=== PATIENT | male | born 1960 | race Caucasian/White ===

== ENCOUNTER → 2018-11-10 08:54 | Outpatient (CLI) | payer BC ==
[2011-01-22 08:19] VITALS: BMI 37.8
--- NOTE | ~2018-11-10 | ST ---
PATIENT:LISSETH GUILLEN MEDICAL RECORD: [id number] SEX: M LOCATION:[facility] ORDER #: ADMISSION DATE: 11/10/18 AGE OF PATIENT: 58 REFERRING PHYSICIAN: INTERPRETING PHYSICIAN: KAEL SOW MD DATE OF SERVICE: 11/10/2018 PROCEDURE: Nuclear stress test. INDICATIONS: Angina, hypertension, shortness of breath, diabetes. The patient was exercised on standard Lexiscan protocol with 26 mCi of sestamibi injected at peak stress. Rest images were done previously with 9 mCi. FINDINGS: Gated SPECT reveals preserved ejection fraction at 50% with good wall motion and thickening and brightening throughout all segments. SPECT imaging Cardiolite was used as myocardial fusion agent. There is homogeneous uptake throughout all segments at rest and stress with no evidence of inducible ischemia or previous infarction. OVERALL IMPRESSION: 1. This is a normal nuclear stress test with no evidence of inducible ischemia or previous infarction. 2. Gated SPECT reveals a preserved ejection fraction at 50%. In this patient with ongoing symptomatology, the current scan does not suggest the presence of hemodynamically significant coronary artery disease. Evaluate noncardiac etiology of chest pain. TRANSINT:[id number] Voice Confirmation ID: [id number] DOCUMENT ID: [id number] KAEL SOW MD CC: KEENAN YUN MD [id number] DICTATION DATE: 11/10/18 1342 DIRECTOR FINANCIAL SERVICES: 11/11/18510 DEP CLI 11/10/18 [id number] [place] [id number]
--- NOTE | 2018-11-14 12:26 | EC ---
PATIENT:LISSETH GUILLEN DATE OF SERVICE: 11/10/18 SEX: M MEDICAL RECORD: [id number] DATE OF : 56 [facility] AGE OF PATIENT: 58 ADMISSION DATE: 11/10/18 REFERRING PHYSICIAN: INTERPRETING PHYSICIAN: MARISOL GUERRA MD ECHOCARDIOGRAM REPORT ECHO CHARGES 4 ECHO COMPLETE Date: 11/10/18 CLINICAL DIAGNOSIS: MURMUR ECHOCARDIOGRAPHIC MEASUREMENTS (adult normal given) AC root (d.<3.7cm) 3.4 cm LV Septum d (<1.2 cm> 2.1 cm Valve Excursion 1.6 cm LV Septum (systole) 2.2 cm Left Atria (s.<4.0cm> 4.5 cm LVPW d(<1.2cm) 1.8 cm RV (d.<2.3cm) 4.0 cm LVPW (sytole) 2.0 cm LV diastole(<5.6CM) 4.0 cm MV E-F(>70mm/sec) cm LV systole 2.7 cm LVOT Diameter 2.3 cm MV exc.(>10mm) 1.2 cm Est.ejection fraction (50-75%) % DOPPLER: LVIT cm/sec A 68.0 cm/sec E 75.0 cm/sec LA cm/sec RVSP 20 mmHg LVOT 109 cm/sec AOP1/2T m/s Asc. Ao 144 cm/sec RVOT 111 cm/sec RA cm/sec PA 153 cm/sec AV Gradient Peak 8.29 mmHg AV Mean 4.80 mmHg AV Area 3.5 cm MV Gradient Peak 3.43 mmHg MV Mean 1.63 mmHg MV Area cm COMMENTS: Learning Disabilities Resource Teacher: 2 WENDY ABDI Auditor: 3 Dr. Morales TAPE# PACS Pericardial Effusion N DATE OF SERVICE: Adequate 2-D, color-flow and spectral Doppler, and M-mode. LVH is present. LV internal dimension is normal. Wall motion is normal. EF of is greater than or equal to 55%. Aortic valve is tricuspid. No evidence of stenosis by Doppler interrogation. Left atrium is dilated at 4.5 cm. Mitral valve shows no prolapse. Mild MR. Right-sided chambers are grossly normal. Trace TR. ECHOCARDIOGRAM REPORT [id number] LISSETH GUILLEN TRANSINT:[id number] Voice Confirmation ID: [id number] DOCUMENT ID: [id number] MARISOL GUERRA MD at 1226 CC: [id number] DICTATION DATE: 11/13/18 145 SULFONATOR OPERATOR: 11/13/18 1629 [facility] CLI 11/10/18 [id number] [place] [id number]
== END | disposition home or self-care (01) ==
LOC: D.HCCARDIO 08:54
PROVIDERS: ATTEND Internal Medicine Interventional Cardiology
DX: I20.9 Angina pectoris, unspecified (principal)